=== PATIENT | female | born 1990 | race Caucasian/White ===

== ENCOUNTER 2016-11-15 19:51 | Emergency (ER) | payer MEDICAID ==
[~2016-11-15] VITALS: Ht 167.6 cm; Wt 63.5 kg
[2016-11-15 20:44] VITALS: BP 130/82
--- NOTE | 2016-11-15 21:42 | NUR ---
PT TAKEN TO OF
--- NOTE | 2016-11-15 21:48 | NUR ---
26 Y/O F W/C/O NEED REFILLS ON [place] AND [place]. PT STATES CALLED PMD AND WAS TOLD TO COME TO ER FOR REFILLS. PT STATES TO BE IN PAIN 02/28. NO S/S OF DISTRESS NOTED AT THE MOMENT.
--- NOTE | 2016-11-15 22:21 | NUR ---
Dr. Briggs evaluating patient
[2016-11-15 22:30] VITALS: BP 118/73
== END 2016-11-15 22:30 | disposition home or self-care (01) ==
LOC: MED 19:51
DX: Z76.0 Encounter for issue of repeat prescription (principal); G89.29 Other chronic pain; M54.2 Cervicalgia

== ENCOUNTER 2019-07-06 01:37 | Emergency (ER) | payer MEDICAID, OTHER ==
[~2019-07-06] VITALS: Ht 167.6 cm; Wt 66.2 kg
[2019-07-06 01:47] VITALS: BP 112/59
--- NOTE | 2019-07-06 01:50 | NUR ---
TO LOBBY A/W BED AMBULATORY
--- NOTE | 2019-07-06 03:06 | NUR ---
29 Y/O FEMALE WITH LACERATION TO POINTER FINGER ON LT HAND. PT STATES SHE WAS CUTTING CHICKEN AND CUT HER FINGER WITH KITCHEN KNIFE. NO BLEEDING AT THIS TIME. 10/10 PULSATING PAIN. PT STATES SHE HAD TETANUS THIS YEAR. NO MEDICATIONS TAKEN FOR PAIN. VSS. MEDHX: ASTHMA, DM ALLERGIES: NKA
--- NOTE | 2019-07-06 03:15 | NUR ---
Dr. Beltran examining patient.
[2019-07-06 04:27] VITALS: BP 112/59
== END 2019-07-06 04:28 | disposition home or self-care (01) ==
LOC: MED 01:37
DX: S61.211A Laceration without foreign body of left index finger without damage to nail, initial encounter (principal); J45.909 Unspecified asthma, uncomplicated; E11.9 Type 2 diabetes mellitus without complications; Z98.890 Other specified postprocedural states; W26.0XXA Contact with knife, initial encounter; Y93.G3 Activity, cooking and baking; Y92.89 Other specified places as the place of occurrence of the external cause; Y99.8 Other external cause status
CPT/HCPCS: 12001; 99283